=== PATIENT | male | born 1970 | race Caucasian/White ===

== ENCOUNTER 2017-09-30 07:44 | Observation (INO) ==
[2017-09-30] MEDS ORDERED: ACETAMINOPHEN 325 MG TABLET PO PRN (09:31)
[2017-09-30] MEDS ORDERED: PROMETHAZINE 25 MG/1 ML VIAL IM PRN (09:31)
[2017-09-30] MEDS ORDERED: HYDROmorphone 2 MG/1 ML VIAL IV PRN (09:31)
[2017-09-30] MEDS: KETOROLAC 15 MG/1 ML VIAL IV SCH ×3 (09:53→21:36)
[2017-09-30] MEDS: PANTOPRAZOLE 40 MG VIAL IV SCH (09:54)
[2017-09-30] MEDS: ONDANSETRON 4 MG/2 ML VIAL IV PRN (09:55)
[2017-09-30] MEDS: LACTATED RINGERS 1,000 ML IV SCH ×2 (09:56→19:49)
[2017-09-30 10:30] LABS: Basophils # 0.1 10*3/uL (0.0-0.2); Basophils % 0.7 % (0.0-0.8); Eosinophils # 0.2 10*3/uL (0.0-0.87); Eosinophils % 1.4 % (0.00-10.9); Hematocrit 45.1 VOL% (42.0-52.0); Hemoglobin 15.5 GM/DL (14.0-18.0); Immature Granulocytes % 0.3 %; Immature Granulocytes Absolute 0.03 #; Lymphocytes % 18.7 % (21.2-54.2); Mean Corpuscular HGB Conc 34.4 GM/DL (32-36); Mean Corpuscular Hemoglobin 31 PG (27-34); Mean Corpuscular Volume 89.1 FL (87-102); Monocytes # 0.9 10*3/uL (0.11-0.8); Monocytes % 8.1 % (1.7-12.7); Neutrophils # 7.6 10*3/uL (1.4-7.4); Neutrophils % 70.8 % (38.7-73.9); Platelet Count 201 T/CUMM (130-400); Red Blood Count 5.06 MC/CUMM (3.8-5.5); Red Cell Distribution Width 12.2 % (9.3-17.3); White Blood Count 10.7 T/CUMM (4-12)
[2017-09-30] MEDS ORDERED: MORPHINE 4 MG/1 ML VIAL IV PRN (10:39)
[2017-09-30] MEDS ORDERED: diphenhydrAMINE 50 MG/1 ML VIAL IV ONE (10:39)
[2017-09-30 10:50] LABS: Calcium 8.7 MG/DL (8.5-10.1); Osmolality,Calculated 277.4 MOS/KG (273-304); Potassium 4.3 MMOL/L (3.5-5.1)
[2017-09-30] MEDS: TAMSULOSIN 0.4 MG CAPSULE PO SCH ×2 (17:17→21:38)
[2017-09-30] MEDS ORDERED: ENOXAPARIN 40 MG/0.4 ML SYRINGE SUBCUT SCH (21:00)
[2017-09-30] MEDS ORDERED: diphenhydrAMINE CAP 25 MG CAPSULE PO ONE (21:56)
[2017-10-01] MEDS: LACTATED RINGERS 1,000 ML IV SCH ×2 (04:04→10:24)
[2017-10-01] MEDS: TAMSULOSIN 0.4 MG CAPSULE PO SCH (09:30)
[2017-10-01] MEDS: PANTOPRAZOLE 40 MG VIAL IV SCH (09:30)
[2017-10-01] MEDS: ONDANSETRON 4 MG/2 ML VIAL IV PRN (09:30)
[2017-10-01 10:32] VITALS: BP 154/88
== END 2017-10-01 10:15 | disposition home or self-care (01) ==
LOC: N.4E
PROVIDERS: ADMIT Surgery; ATTEND Surgery